=== PATIENT | male | born 1980 | race Two or more races ===

== ENCOUNTER 2019-02-12 13:19 | Emergency (ER) | payer SELFPAY ==
[~2019-02-12] VITALS: Ht 165.1 cm; Wt 59.0 kg
--- NOTE | 2019-02-12 13:25 | NUR ---
ED Nurse Note: Patient [place] in by ambulance [place] bus stop after smoking "unknown substance that is not weed" patient is a/o x4 at this time breathing unlabored and even. patient's BP at scene was 68/25 but upon arrival to ED it was 91/54
--- NOTE | 2019-02-12 13:58 | NUR ---
ED Nurse Note: blood sent to lab
[2019-02-12 13:59] VITALS: BP 92/58
--- NOTE | 2019-02-12 14:03 | NUR ---
ED Nurse Note: urine sent to lab
--- NOTE | 2019-02-12 14:06 | Emergency Room Report ---
History of Present Illness General Chief Complaint: General Complaint Source: Patient Present Illness HPI Patient is 38-year-old male brought in by EMS after increased generalized weakness and dizziness. Patient reported having onset of lightheadedness. Patient states that he had recently been drinking alcohol. He reports having increased near syncope. Patient had reported heavy alcohol use. He states he last drank approximately 2 hours ago. He denies any vomiting or diarrhea. 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 He reports having onset of symptoms during standing. He denies any hematemesis or bloody stools. He reports drinking alcohol chronically. He denies any abdominal pain. Allergies: Coded Allergies: PENICILLINS (Verified Allergy, Unknown, 02/12/19) Patient History Past Medical History: see triage record Reviewed Nursing Documentation: PMH: Agreed; PSxH: Agreed Nursing Documentation-PMH Past Medical History: No Stated History Review of Systems All Other Systems: negative except mentioned in HPI Physical Exam Vital Signs Date Time Temp Pulse Resp B/P (MAP) Pulse Ox O2 Delivery O2 Flow Rate FiO2 02/12/19 13:16 98.4 88 14 99 Room Air 02/12/19 13:59 92/58 Sp02 EP Interpretation: reviewed, normal General Appearance: normal inspection, well appearing, no apparent distress, alert, GCS 15 Head: atraumatic ENT: normal ENT inspection, hearing grossly normal, normal voice Neck: normal inspection, full range of motion, supple, no bony tend Respiratory: normal inspection, lungs clear, normal breath sounds, no respiratory distress, no retraction, no wheezing Cardiovascular #1: regular rate, rhythm, no edema Gastrointestinal: normal inspection, normal bowel sounds, non tender, soft, no guarding, no hernia Genitourinary: no CVA tenderness Musculoskeletal: normal inspection, back normal, normal range of motion Neurologic: normal inspection, alert, oriented x3, responsive, truck driver's offsider III-XII nml as tested, speech normal Psychiatric: normal inspection, judgement/insight normal, mood/affect normal Skin: normal inspection, normal color, no rash Medical Decision Making Diagnostic Impression: Primary Impression: Generalized weakness Additional Impression: Alcohol abuse ER Course Patient presented for generalized weakness. Differential diagnosis included was not limited to anemia, urinary tract infection, electrolyte abnormality, hypothyroidism, myocardial infarction, myasthenia gravis, dehydration, among others. Because of complexity of patient's case laboratory testing and imaging studies were ordered. Patient was noted to have some lightheadedness after recent alcohol intake. He was not noted to have any bleeding and does not appear to be in any acute distress. He does not have any risk factor for pulmonary embolism or myocardial infarction. He does not appear to be septic and has no focus or infection.Patient was noted to have urine drug screen which is positive for amphetamine as well as for marijuana. Patient was started on IV fluids. He was able to tolerate oral fluids as well as food. Patient does not appear to require any imaging at this time. Patient was noted to have improvement in his blood pressure over time.Patient was noted to have some low blood pressure which appears to resolve after his alcohol or off. Bedside ultrasound showed no evidence of pericardial effusion or abnormal cardiac function.Patient appears to be stable for discharge. Patient stated he felt better want to go home.Patient was advised to follow-up with his primary care physician for recheck. Labs Test 02/12/19 13:48 02/12/19 14:00 White Blood Count 4.5 K/UL (4.8-10.8) Red Blood Count 4.22 M/UL (4.70-6.10) Hemoglobin 13.2 G/DL (14.2-18.0) Hematocrit 40.1 % (42.0-52.0) Mean Corpuscular Volume 95 FL (80-99) Mean Corpuscular Hemoglobin 31.4 PG (27.0-31.0) Mean Corpuscular Hemoglobin Concent 33.0 G/DL (32.0-36.0) Red Cell Distribution Width 11.6 % (11.6-14.8) Platelet Count 280 K/UL (150-450) Mean Platelet Volume 5.0 FL (6.5-10.1) Neutrophils (%) (Auto) 63.4 % (45.0-75.0) Lymphocytes (%) (Auto) 29.4 % (20.0-45.0) Monocytes (%) (Auto) 5.5 % (1.0-10.0) Eosinophils (%) (Auto) 0.9 % (0.0-3.0) Basophils (%) (Auto) 0.8 % (0.0-2.0) Sodium Level 141 MMOL/L (136-145) Potassium Level 3.7 MMOL/L (3.5-5.1) Chloride Level 107 MMOL/L (98-107) Carbon Dioxide Level 26 MMOL/L (21-32) Anion Gap 8 mmol/L (5-15) Blood Urea Nitrogen 9 mg/dL (7-18) Creatinine 0.9 MG/DL (0.55-1.30) Estimat Glomerular Filtration Rate > 60 mL/min (>60) Glucose Level 70 MG/DL (74-106) Calcium Level 7.8 MG/DL (8.5-10.1) Total Bilirubin 0.3 MG/DL (0.2-1.0) Aspartate Amino Transf (AST/SGOT) 17 U/L (15-37) Alanine Aminotransferase (ALT/SGPT) 25 U/L (12-78) Alkaline Phosphatase 44 U/L (46-116) Total Creatine Kinase 136 U/L (26-308) Creatine Kinase MB 1.3 NG/ML (0.0-3.6) Creatine Kinase MB Relative Index 0.9 Total Protein 6.0 G/DL (6.4-8.2) Albumin 3.5 G/DL (3.4-5.0) Globulin 2.5 g/dL Albumin/Globulin Ratio 1.4 (1.0-2.7) Salicylates Level 3.2 ug/mL (2.8-20) Acetaminophen Level 2 MCG/ML (10-30) Serum Alcohol 49 mg/dL Urine Opiates Screen Negative (NEGATIVE) Urine Barbiturates Screen Negative (NEGATIVE) Phencyclidine (PCP) Screen Negative (NEGATIVE) Urine Amphetamines Screen Positive (NEGATIVE) Urine Benzodiazepines Screen Negative (NEGATIVE) Urine Cocaine Screen Negative (NEGATIVE) Urine Marijuana (THC) Screen Positive (NEGATIVE) EKG Diagnostic Results Rate: normal Rhythm: NSR ST Segments: other - Early repolarization. Last Vital Signs Date Time Temp Pulse Resp B/P (MAP) Pulse Ox O2 Delivery O2 Flow Rate FiO2 02/12/19 13:59 98.4 75 17 92/58 100 Room Air Status: improved Disposition: HOME, SELF-CARE Condition: Stable Gatito Carlisle MD February 12, 2019 14:06
[2019-02-12 14:10] LABS: BASOPHILS % (AUTO) 0.8 % (0.0-2.0); EOSINOPHILS % (AUTO) 0.9 % (0.0-3.0); HEMATOCRIT 40.1 % (42.0-52.0); HEMOGLOBIN 13.2 G/DL (14.2-18.0); LYMPHOCYTES % (AUTO) 29.4 % (20.0-45.0); MEAN CORPUSCULAR VOLUME 95 FL (80-99); MONOCYTES % (AUTO) 5.5 % (1.0-10.0); NEUTROPHILS % (AUTO) 63.4 % (45.0-75.0); PLATELET COUNT 280 K/UL (150-450); RED BLOOD COUNT 4.22 M/UL (4.70-6.10); RED CELL DISTRIBUTION WIDTH 11.6 % (11.6-14.8); WHITE BLOOD COUNT 4.5 K/UL (4.8-10.8)
[2019-02-12 14:13] LABS: ANION GAP 8 mmol/L (5-15); BLOOD UREA NITROGEN 9 mg/dL (7-18); CALCIUM 7.8 MG/DL (8.5-10.1); CARBON DIOXIDE 26 MMOL/L (21-32); CHLORIDE 107 MMOL/L (98-107); CREATININE 0.9 MG/DL (0.55-1.30); POTASSIUM 3.7 MMOL/L (3.5-5.1); SODIUM 141 MMOL/L (136-145)
[2019-02-12 14:22] VITALS: BP 96/64
[2019-02-12 14:26] LABS: ALANINE AMINOTRANSFERASE 25 U/L (12-78); ALBUMIN 3.5 G/DL (3.4-5.0); ALBUMIN/GLOBULIN RATIO 1.4 (1.0-2.7); ALKALINE PHOSPHATASE 44 U/L (46-116); ASPARTATE AMINO TRANSFERASE 17 U/L (15-37); BILIRUBIN,TOTAL 0.3 MG/DL (0.2-1.0); CKMB 1.3 NG/ML (0.0-3.6); CREATINE KINASE 136 U/L (26-308)
--- NOTE | 2019-02-12 14:28 | Diagnostic Imaging Report ---
Indication: Dyspnea Comparison: None A single view chest radiograph was obtained. Findings: Cardiomediastinal appearance is within normal limits for age. The lungs are clear. Pulmonary vascularity is appropriate. The diaphragmatic contour is smooth and costophrenic angles are sharp. No pleural effusions are identified. The bones are unremarkable. Impression: No acute findings
[2019-02-12 16:04] VITALS: BP 96/64
[2019-02-12 16:57] VITALS: BP 104/71
[2019-02-12 16:59] VITALS: BP 104/71
--- NOTE | 2019-02-12 16:59 | NUR ---
ER DISCHARGE NOTE: Patient is cleared to be discharged per ERMD DR NATION, pt is aox4, on room air, with stable vital signs. BP is 104/71 DR. NATION NOTIFIED, OK TO DC. pt was given dc instructions, pt was able to verbalize understanding, pt id band and iv site removed without complications. pt is able to ambulate with steady gait. pt took all belongings. PATIENT REPORTS THAT HI MOTHER CAME TO ED TO PICK HIM UP.
--- NOTE | 2019-02-13 14:28 | Cardiology Report ---
APPROVED REPORT EKG Measurement Heart [id number] Normal sinus rhythm Early repolarization Normal ECG
--- NOTE | 2019-02-13 14:35 | Cardiology Report ---
APPROVED REPORT EKG Measurement Heart [id number] Normal sinus rhythm Early repolarization Normal ECG
== END 2019-02-12 17:00 | disposition home or self-care (01) ==
LOC: EDBD 13:19 → EMR 14:41
DX: R53.1 Weakness (principal); F10.10 Alcohol abuse, uncomplicated; R42 Dizziness and giddiness; Z88.0 Allergy status to penicillin
CPT/HCPCS: 36415; 71045; 80053; 80307; 82550; 82553; 82962; 85025; 93005; 96360; 96361; 99284; G0480; 80329